=== PATIENT | female | born 1940 | race Caucasian/White ===

== ENCOUNTER 2019-10-22 09:53 | Day surgery (SDC) | payer MEDICARE ==
[~2019-10-22 09:53] MED LIST: Buffered Lidocaine 1% SYRIN* 1 ML/SYRINGE INTRADERM ONE; Famotidine IV* 10 MG/ML 2 ML (20 mg) IV ONE; Lactated Ringers 1000 ML Bag* 1,000 ML IV SCH
[2019-10-22] MEDS ORDERED: Buffered Lidocaine 1% SYRIN* 1 ML/SYRINGE INTRADERM ONE (10:03)
[2019-10-22] MEDS ORDERED: Clindamycin 900 MG/D5W BAG(*) 900 MG/50 ML BAG IVPB ONE (10:03)
[2019-10-22] MEDS ORDERED: Famotidine IV* 10 MG/ML 2 ML (20 mg) ONE (10:03)
[2019-10-22] MEDS ORDERED: fentaNYL* 50 MCG/ML 2 ML VIAL (100 MCG VIAL) ONE (10:50)
[2019-10-22] MEDS ORDERED: Midazolam* 1 MG/ML 2 ML VIAL (2 MG) ONE (10:50)
[2019-10-22] MEDS ORDERED: Mineral Oil Sterile, TOPICAL* 25 ML BTL ONE (11:11)
[2019-10-22] MEDS ORDERED: Lidocaine 1% w EPI 1:100,000* MDV 20 ML VIAL ONE (11:11)
[2019-10-22] MEDS ORDERED: Bupivacaine 0.25% SDV* 30 ML ONE (11:11)
[2019-10-22] MEDS ORDERED: Methylene Blue 0.5 %* 50 MG/10 ML AMP IV ONE (11:11)
[2019-10-22] MEDS ORDERED: Lidocaine 2% PF * 5 ML VIAL ONE (11:42)
[2019-10-22] MEDS ORDERED: Acetaminophen IV 1GM/100ML * 100 ML ONE (11:42)
[2019-10-22] MEDS ORDERED: Dexamethasone IV* 4 MG/ML 1 ML (4 MG) ONE (11:43)
[2019-10-22] MEDS ORDERED: Propofol* 10 MG/ML 20 ML BTL ONE ×2 (11:43)
[2019-10-22] MEDS ORDERED: KETAMINE HCL* 50 MG/ML 10 ML VIAL ONE (11:57)
[2019-10-22] MEDS ORDERED: Naloxone* 0.4 MG/ML 1 ML VIAL IV PRN (12:19)
[2019-10-22] MEDS ORDERED: fentaNYL* 50 MCG/ML 2 ML VIAL (100 MCG VIAL) IV PRN (12:19)
[2019-10-22] MEDS ORDERED: DiMENhydriNATE IV* 50 MG/ML VIAL IV PUSH PRN (12:19)
[2019-10-22] MEDS ORDERED: Ondansetron INJ* 2 MG/ML VIAL IV PRN (12:19)
[2019-10-22 14:31] VITALS: BP 169/98
== END 2019-10-22 14:44 | disposition home or self-care (01) ==
LOC: OR 09:53
PROVIDERS: ATTEND Plastic Surgery
DX: C43.71 Malignant melanoma of right lower limb, including hip (principal); Z68.33 Body mass index [BMI] 33.0-33.9, adult; Z85.048 Personal history of other malignant neoplasm of rectum, rectosigmoid junction, and anus; M19.90 Unspecified osteoarthritis, unspecified site; Z96.641 Presence of right artificial hip joint
CPT/HCPCS: 88305; A9270-GY; J1100; J2250; J2704; J3010; J3490

== ENCOUNTER 2019-12-03 06:33 | Day surgery (SDC) | payer MEDICARE ==
[~2019-12-03 06:33] MED LIST changes: -Famotidine IV* 10 MG/ML 2 ML (20 mg) IV ONE
[2019-12-03] MEDS ORDERED: Buffered Lidocaine 1% SYRIN* 1 ML/SYRINGE INTRADERM ONE (07:00)
[2019-12-03] MEDS ORDERED: Clindamycin 900 MG/D5W BAG(*) 900 MG/50 ML BAG IVPB ONE (07:00)
[2019-12-03] MEDS ORDERED: Lidocaine 2.5%/Prilocain 2.5%* 5 GM TUBE ONE (07:10)
[2019-12-03] MEDS ORDERED: Methylene Blue 0.5 %* 50 MG/10 ML AMP IV ONE (12:53)
[2019-12-03] MEDS ORDERED: Lidocaine 1% w EPI 1:100,000* MDV 20 ML VIAL ONE (12:53)
[2019-12-03] MEDS ORDERED: Mineral Oil Sterile, TOPICAL* 25 ML BTL ONE (12:54)
[2019-12-03] MEDS ORDERED: Bupivacaine 0.25% SDV PF* 10 ML VIAL INJ ONE (12:54)
[2019-12-03] MEDS ORDERED: Midazolam* 1 MG/ML 2 ML VIAL (2 MG) ONE (13:08)
[2019-12-03] MEDS ORDERED: Propofol* 10 MG/ML 20 ML BTL ONE (13:13)
[2019-12-03] MEDS ORDERED: fentaNYL* 50 MCG/ML 2 ML VIAL (100 MCG VIAL) ONE (13:13)
[2019-12-03] MEDS ORDERED: Acetaminophen IV 1GM/100ML * 1,000 MG/100 ML VIAL IVPB ONE (13:42)
[2019-12-03] MEDS ORDERED: Naloxone* 0.4 MG/ML 1 ML VIAL IV PRN (13:42)
[2019-12-03] MEDS ORDERED: Ondansetron INJ* 2 MG/ML VIAL IV PRN (13:42)
[2019-12-03] MEDS ORDERED: Ondansetron INJ* 2 MG/ML VIAL ONE (14:09)
[2019-12-03] MEDS ORDERED: Acetaminophen IV 1GM/100ML * 100 ML ONE (14:24)
[2019-12-03 15:08] VITALS: BP 146/60
== END 2019-12-03 15:15 | disposition home or self-care (01) ==
LOC: SDS 06:33
PROVIDERS: ATTEND Plastic Surgery
DX: C43.71 Malignant melanoma of right lower limb, including hip (principal); M19.90 Unspecified osteoarthritis, unspecified site; E66.9 Obesity, unspecified; Z85.048 Personal history of other malignant neoplasm of rectum, rectosigmoid junction, and anus
CPT/HCPCS: 78195; 88307; 88341; 88342; A9270-GY; A9541; C1776; J2250; J2405; J2704; J3010; J3490

== ENCOUNTER 2022-06-14 06:57 | Observation (INO) ==
[~2022-06-14 06:57] MED LIST changes: +Buffered Lidocaine 1% SYRIN 1 ml INTRADERM ONE; -Buffered Lidocaine 1% SYRIN* 1 ML/SYRINGE INTRADERM ONE; -Lactated Ringers 1000 ML Bag* 1,000 ML IV SCH; +Lactated Ringers 1000 ml BAG 1,000 ML IV SCH
[2022-06-14] MEDS ORDERED: Lidocaine 2% PF 5 ML VIAL ONE ×2 (06:59→08:12)
[2022-06-14] MEDS ORDERED: Propofol 10 MG/ML 20 ML BTL ONE ×2 (06:59→10:35)
[2022-06-14] MEDS ORDERED: Bupivacaine 0.5% PF 10 ML SDV VIAL INJ ONE (07:06)
[2022-06-14] MEDS ORDERED: Ropivacaine 5 MG/ML 20 ML VIAL 0.5% (100 MG) ONE (07:17)
[2022-06-14] MEDS ORDERED: Clindamycin 900 MG/D5W BAG 900 MG/50 ML BAG IVPB ONE (08:10)
[2022-06-14] MEDS ORDERED: ROPIVACAINE 5 MG/ML 30 ML BTL (0.5%) ONE (08:12)
[2022-06-14] MEDS ORDERED: fentaNYL 100 mcg/2 ml 50 MCG/ML VIAL ONE (08:12)
[2022-06-14] MEDS ORDERED: Midazolam 5 mg/5 ml VIAL 1 mg/ml 5 ml VIAL (5 mg) ONE (08:12)
[2022-06-14] MEDS ORDERED: Sterile Water for Inj 10 ML ONE (09:41)
[2022-06-14] MEDS ORDERED: Acetaminophen IV 1 GM/100ML 1,000 MG/100 ML BAG IV ONE (09:42)
[2022-06-14] MEDS ORDERED: fentaNYL 100 mcg/2 ml 50 MCG/ML VIAL IV PRN (09:46)
[2022-06-14] MEDS ORDERED: Ondansetron 4 mg VIAL 2 MG/ML 2 ml VIAL IV PRN ×2 (09:46→10:16)
[2022-06-14] MEDS ORDERED: Naloxone 0.4 mg VIAL 0.4 mg/ml 1 ml VIAL IV PRN (09:46)
[2022-06-14] MEDS ORDERED: Magnesium Hydroxide LIQ 30 ML UDC PO PRN (10:16)
[2022-06-14] MEDS ORDERED: Ondansetron ODT 4 mg TAB 4 MG TAB PO PRN (10:16)
[2022-06-14] MEDS ORDERED: Lactulose 30 ml UDC PO PRN (10:16)
[2022-06-14] MEDS ORDERED: Morphine 2 MG/ML SYRINGE IV PRN (10:16)
[2022-06-14] MEDS ORDERED: Clindamycin 600 MG/D5W BAG 600 MG/50 ML BAG IV SCH (11:00)
[2022-06-14] MEDS: Lactated Ringers 1000 ml BAG 1,000 ML IV SCH (13:50)
[2022-06-14] MEDS: Clindamycin 600 MG/D5W BAG 600 MG/50 ML BAG IV SCH (18:06)
[2022-06-14] MEDS: Magnesium Hydroxide LIQ 30 ML UDC PO SCH (20:18)
[2022-06-14] MEDS ORDERED: Timolol 0.5% OPTH.SOL BTL RIGHT EYE SCH (21:00)
[2022-06-15] MEDS: Lactated Ringers 1000 ml BAG 1,000 ML IV SCH (00:54)
[2022-06-15] MEDS: Clindamycin 600 MG/D5W BAG 600 MG/50 ML BAG IV SCH ×2 (03:28→11:05)
[2022-06-15 06:08] LABS: Hematocrit 38 % (35-47); Hemoglobin 12.8 g/dL (12.0-16.0); Mean Platelet Volume 6.4 fL (7.4-10.4); Platelet Count 231 10^3/uL (150-450)
[2022-06-15 06:32] LABS: Calcium 8.9 mg/dL (8.6-10.3); Potassium 4.2 mmol/L (3.5-5.0)
[2022-06-15 06:37] LABS: eGFR CKD-EPI 62.6 (>60)
[2022-06-15] MEDS ORDERED: Vitamin THERAPEUTIC TAB PO SCH (09:00)
[2022-06-15] MEDS: Magnesium Hydroxide LIQ 30 ML UDC PO SCH (10:02)
[2022-06-15 11:12] VITALS: BP 146/76
== END 2022-06-15 13:30 | disposition home or self-care (01) ==
LOC: AA 06:57 → INTOOBSV 06:57 → SSU 13:53
PROVIDERS: ADMIT Orthopaedic Surgery Adult Reconstructive Orthopaedic Surgery; ATTEND Orthopaedic Surgery Adult Reconstructive Orthopaedic Surgery